=== PATIENT | male | born 1965 | race African-American/Black ===

== ENCOUNTER 2017-09-22 09:43 | Emergency (ER) | payer OTHER ==
[~2017-09-22] VITALS: Ht 170.2 cm; Wt 67.0 kg
[~2017-09-22 09:43] MED LIST: LEVA500T PO; LORTA5 PO
[2017-09-22 09:54] VITALS: BP 122/79; PULSE 94; RESP 16; TEMP 98.2; O2SAT 96
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
== END 2017-09-22 10:40 ==
LOC: NEPD 09:43
DX: S21.119A Laceration without foreign body of unspecified front wall of thorax without penetration into thoracic cavity, initial encounter (principal); S20.319A Abrasion of unspecified front wall of thorax, initial encounter; F17.200 Nicotine dependence, unspecified, uncomplicated; W45.8XXA Other foreign body or object entering through skin, initial encounter; Y93.39 Activity, other involving climbing, rappelling and jumping off
CPT/HCPCS: 12001